=== PATIENT | female | born 1940 | race Caucasian/White ===

== ENCOUNTER → 2018-07-30 | Outpatient (CLI) | payer MEDICARE ==
[~2018-07-30] MED LIST: CIPRO500 MG PO; KEFLEX250 MG PO; MACRODANTIN100 MG PO
--- NOTE | 2018-08-02 08:26 | Diagnostic Imaging Report ---
TECHNIQUE: Magnetic resonance imaging of the right ankle and foot was performed WITHOUT injected contrast. COMPARISON: None available. HISTORY: pain, arthritis FINDINGS: LIGAMENTS: Medial Complex: Deltoid intact. Lateral Complex: Tibiofibular, talofibular, and calcaneofibular ligaments intact. TENDONS: Medial: Posterior tibial and flexor tendons intact. Lateral: Peroneal tendons intact. Anterior: Anterior tibial and extensor tendons intact. Achilles: Achilles tendon intact. BONES: Multifocal bone marrow edema throughout the foot including second metatarsal head, lateral cuneiform, cuboid, and calcaneus. No acute fracture or osteonecrosis. 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 Other: Fluid within the joints is within physiologic limits. SOFT TISSUES: Plantar fascia is unremarkable. The intermetatarsal spaces are clear. No neuroma. Plantar plates intact. IMPRESSION: Multifocal bone marrow edema throughout the foot without fracture. Favored to be due to stress response. No fracture. Signed by: Dr. Hitesh Gonzalez M.D. on 08/02/2018 8:23 AM
== END ==
LOC: MRI 15:26
PROVIDERS: ATTEND Specialist
DX: M19.071 Primary osteoarthritis, right ankle and foot (principal)

== ENCOUNTER 2021-07-19 10:57 | Outpatient (RCR) | payer MEDICARE, OTHER ==
[~2021-07-19 10:57] MED LIST changes: +ACIDOPHILUS1 EAC1 PO; +B12 ACTIVE1000 MCG PO; +COLESTIPOL HCL1 GM PO; +CRANBERRY200 MG PO; +DICYCLOMINE HCL20 MG PO; +ESTRACE42.5 GM VG; +MAGNESIUM OXID400 MG PO; +METAMUCIL FIBE3.4 GM PO; +METHENAMINE HIPP1 GM PO; +MULTI-VITAMIN1 EACH PO; +NEURONTIN300 MG PO; +OMEPRAZOLE40 MG PO; +OS-CAL 500+D T1 EACH PO; +PEPCID20 MG PO; +PROBIOTIC250 MG PO; +SLEEP AID25 M1 PO
== END 2021-07-23 ==
LOC: PT 10:57
PROVIDERS: ATTEND Specialist
DX: Z47.89 Encounter for other orthopedic aftercare (principal); S72.002D Fracture of unspecified part of neck of left femur, subsequent encounter for closed fracture with routine healing; M62.81 Muscle weakness (generalized); M25.552 Pain in left hip; M25.652 Stiffness of left hip, not elsewhere classified

== ENCOUNTER 2021-08-19 11:00 | Outpatient (RCR) | payer MEDICARE, OTHER | END 2021-08-22 | LOC: PT 11:00 | PROVIDERS: ATTEND Specialist | DX: Z47.89 Encounter for other orthopedic aftercare (principal); S72.002D Fracture of unspecified part of neck of left femur, subsequent encounter for closed fracture with routine healing; M62.81 Muscle weakness (generalized); M25.552 Pain in left hip; M25.652 Stiffness of left hip, not elsewhere classified | CPT/HCPCS: 97139 ==

== ENCOUNTER 2021-09-20 11:00 | Outpatient (RCR) | payer MEDICARE, OTHER | END 2021-09-22 | LOC: PT 11:00 | PROVIDERS: ATTEND Specialist | DX: S72.092A Other fracture of head and neck of left femur, initial encounter for closed fracture (principal) | CPT/HCPCS: 97139 ==

== ENCOUNTER 2022-07-08 10:53 | Inpatient (IN) | payer MEDICARE, OTHER ==
[~2022-07-08] VITALS: Ht 167.6 cm; Wt 70.8 kg
[2022-07-08] MEDS: MEROPENEM 1 GM in SODIUM CHLORIDE 0.9% 100 ML IV SCH ×2 (11:44→21:09)
[2022-07-08] MEDS ORDERED: ONDANSETRON HCL INJ 2MG/ML 2ML 2 MG/ML VIAL IV PRN (11:45)
[2022-07-08] MEDS: SODIUM CHLORIDE 0.9% 1000ML 1,000 ML IV SCH (11:53)
[2022-07-08 11:55] LABS: BASOPHILS % 1.4 % (0.0-1.0); EOSINOPHILS # (AUTO) 0.1 (0.0-0.4); EOSINOPHILS % 5.7 % (0.0-6.0); HEMOGLOBIN 12.7 g/dL (12.0-16.0); LYMPHOCYTES # (AUTO) 1.2 (1.0-3.2); LYMPHOCYTES % 55.2 % (18.0-39.1); MEAN CORPUSCULAR HEMOGLOBIN 30.8 pg (28-32); MEAN CORPUSCULAR HGB CONC 32.6 g/dL (31-35); MEAN CORPUSCULAR VOLUME 94.7 fL (81-99); MONOCYTES # (AUTO) 0.5 (0.2-0.8); MONOCYTES % 23.6 % (4.4-11.3); NEUTROPHILS # (AUTO) 0.3 (2.1-6.9); NEUTROPHILS % 14.1 % (38.7-80.0); PLATELET COUNT 280 x10e3/uL (140-360); RED BLOOD COUNT 4.12 x10e6/uL (3.6-5.1); RED CELL DISTRIBUTION WIDTH 13.2 % (11.7-14.4)
[2022-07-08 11:57] LABS: CLARITY,URINE CLOUDY (CLEAR); COLOR,URINE YELLOW (YELLOW); LEUKOCYTE ESTERASE ,URINE SMALL (NEGATIVE); NITRITE,URINE NEGATIVE (NEGATIVE); PROTEIN,URINE DIPSTICK 2+ (NEGATIVE)
[2022-07-08 11:58] LABS: KETONES,URINE NEGATIVE (NEGATIVE); URINE UROBILINOGEN 0.2 mg/dL (0.2 - 1)
[2022-07-08 12:09] LABS: BACTERIA,URINE MODERATE /HPF; EPITHELIAL CELLS,URINE MODERATE /LPF; RBC,URINE 0-5 /HPF (0-5)
[2022-07-08 12:10] LABS: TRIPLE PHOSPHATE CRYSTAL,UR FEW (FEW)
[2022-07-08 12:20] LABS: ALANINE AMINOTRANSFERASE 16 IU/L (0-55); ALBUMIN 3.7 g/dL (3.5-5.0); ALKALINE PHOSPHATASE 68 IU/L (40-150); ANION GAP 11.4 mmol/L (8-16); BLOOD UREA NITROGEN 14 mg/dL (7-26); BUN/CREATININE RATIO 17 (6-25); CALCIUM 9.1 mg/dL (8.4-10.2); CARBON DIOXIDE 25 mmol/L (22-29); CHLORIDE 108 mmol/L (98-107); CREATININE, SERUM 0.83 mg/dL (0.57-1.11); GLUCOSE 156 mg/dL (74-118); MAGNESIUM 1.7 MG/DL (1.3-2.1); POTASSIUM 3.4 mmol/L (3.5-5.1); SODIUM 141 mmol/L (136-145)
[2022-07-08 13:16] LABS: EOSINOPHILS % (MANUAL) 6 % (0-7); LYMPHOCYTES % (MANUAL) 59 % (19-48); MONOCYTES % (MANUAL) 21 % (3.4-9.0); NEUTROPHILS % (MANUAL) 11 % (40-74)
[2022-07-08 13:17] LABS: PLATELET ESTIMATE ADEQUATE; PLATELET MORPHOLOGY COMMENT NORMAL; RBC MORPHOLOGY COMMENT NORMAL
[2022-07-08 15:40] VITALS: BP 133/65; PULSE 66; RESP 18; TEMP 97.9; O2SAT 100
[2022-07-08] MEDS ORDERED: D-mannose PO (16:44)
[2022-07-08 17:30] VITALS: BP 133/65; PULSE 66; RESP 18; TEMP 97.9; O2SAT 100
[2022-07-08] MEDS ORDERED: IOPAMIDOL 370 MG/ML 100 ML INFUS..BTL INJ ONE (17:50)
[2022-07-08 17:51] VITALS: BP 133/65; PULSE 66; RESP 18; TEMP 97.9; O2SAT 100
[2022-07-08] MEDS ORDERED: ACETAMINOPHEN 325 MG TAB PO PRN (19:30)
[2022-07-08 20:33] VITALS: BP 139/59; PULSE 71; RESP 18; TEMP 97.1; O2SAT 98
[2022-07-08 20:51] VITALS: BP 139/59; PULSE 71; RESP 18; TEMP 97.1; O2SAT 98
[2022-07-08] MEDS: FAMOTIDINE 20 MG TAB PO SCH (21:08)
[2022-07-08] MEDS ORDERED: MELATONIN 5 MG TABLET PO PRN (22:30)
[2022-07-09] VITALS (7 sets, daily range): BP systolic 128–156; BP diastolic 59–91; PULSE 63–82; RESP 16–20; TEMP 96.2–98.2; O2SAT 95–100
[2022-07-09 04:52] LABS: BASOPHILS % 0.8 % (0.0-1.0); EOSINOPHILS # (AUTO) 0.2 (0.0-0.4); EOSINOPHILS % 6.5 % (0.0-6.0); HEMATOCRIT 32.4 % (34.2-44.1); HEMOGLOBIN 10.7 g/dL (12.0-16.0); LYMPHOCYTES # (AUTO) 1.5 (1.0-3.2); LYMPHOCYTES % 62.3 % (18.0-39.1); MEAN CORPUSCULAR HEMOGLOBIN 31.1 pg (28-32); MEAN CORPUSCULAR VOLUME 94.2 fL (81-99); MONOCYTES # (AUTO) 0.6 (0.2-0.8); MONOCYTES % 23.5 % (4.4-11.3); NEUTROPHILS # (AUTO) 0.2 (2.1-6.9); NEUTROPHILS % 6.9 % (38.7-80.0); PLATELET COUNT 216 x10e3/uL (140-360); RED BLOOD COUNT 3.44 x10e6/uL (3.6-5.1); RED CELL DISTRIBUTION WIDTH 12.9 % (11.7-14.4)
[2022-07-09 05:13] LABS: ANION GAP 11.5 mmol/L (8-16); CALCIUM 8.5 mg/dL (8.4-10.2); CREATININE, SERUM 0.71 mg/dL (0.57-1.11); POTASSIUM 3.5 mmol/L (3.5-5.1)
[2022-07-09] MEDS: SODIUM CHLORIDE 0.9% 1000ML 1,000 ML IV SCH (06:43)
[2022-07-09] MEDS: MEROPENEM 1 GM in SODIUM CHLORIDE 0.9% 100 ML IV SCH ×3 (06:43→21:16)
[2022-07-09 07:06] LABS: EOSINOPHILS % (MANUAL) 4 % (0-7); LYMPHOCYTES % (MANUAL) 57 % (19-48); MONOCYTES % (MANUAL) 23 % (3.4-9.0); NEUTROPHILS % (MANUAL) 9 % (40-74)
[2022-07-09 07:07] LABS: PLATELET ESTIMATE ADEQUATE; PLATELET MORPHOLOGY COMMENT NORMAL; RBC MORPHOLOGY COMMENT ABNORMAL
[2022-07-09] MEDS: MULTIVITAMINS/MINERALS TAB PO SCH (08:44)
[2022-07-09] MEDS: LACTOBACILLUS ACIDOPHILUS CAPSULE PO SCH (08:44)
[2022-07-09] MEDS ORDERED: ONDANSETRON HCL 4 MG ORAL DISINTEGRATING TAB PO PRN (13:30)
[2022-07-09] MEDS: FAMOTIDINE 20 MG TAB PO SCH (21:16)
[2022-07-10] VITALS (10 sets, daily range): BP systolic 133–183; BP diastolic 62–82; PULSE 62–71; RESP 17–20; TEMP 97.8–98.2; O2SAT 97–100
[2022-07-10] MEDS ORDERED: SODIUM CHLORIDE 0.9% 250ML 250 ML ONE (05:38)
[2022-07-10] MEDS ORDERED: CLONIDINE HCL 0.1 MG TAB PO PRN (06:00)
[2022-07-10] MEDS: MEROPENEM 1 GM in SODIUM CHLORIDE 0.9% 100 ML IV SCH ×4 (06:06→21:45)
[2022-07-10] MEDS: LACTOBACILLUS ACIDOPHILUS CAPSULE PO SCH (10:07)
[2022-07-10] MEDS: MULTIVITAMINS/MINERALS TAB PO SCH (10:07)
[2022-07-10] MEDS: FAMOTIDINE 20 MG TAB PO SCH (21:45)
[2022-07-11] VITALS: BP 151/55; PULSE 60; RESP 17; TEMP 97.6; O2SAT 100
[2022-07-11 04:00] VITALS: BP 169/68; PULSE 56; RESP 18; TEMP 97.8; O2SAT 100
[2022-07-11] MEDS: MEROPENEM 1 GM in SODIUM CHLORIDE 0.9% 100 ML IV SCH (05:36)
[2022-07-11 08:00] VITALS: BP 147/65; PULSE 57; RESP 18; TEMP 98; O2SAT 100
[2022-07-11 08:39] VITALS: BP 147/65; PULSE 57; RESP 18; TEMP 98; O2SAT 100
[2022-07-11] MEDS: LACTOBACILLUS ACIDOPHILUS CAPSULE PO SCH (09:24)
[2022-07-11] MEDS: MULTIVITAMINS/MINERALS TAB PO SCH (09:24)
[2022-07-11 11:53] VITALS: BP 140/65; PULSE 61; RESP 18; TEMP 98; O2SAT 98
== END 2022-07-11 12:30 | disposition home or self-care (01) | DRG 690 ==
LOC: ER 10:56 → ERHOLD 11:34 → MED/SURG3 15:40 → OBSVTOIN 07-09 08:49
PROVIDERS: ADMIT Family Medicine; ATTEND Family Medicine
PROC: 02HV33Z Insertion of Infusion Device into Superior Vena Cava, Percutaneous Approach (ICD-10-PCS; principal; 2022-07-10)
PROC: B5181ZA Fluoroscopy of Superior Vena Cava using Low Osmolar Contrast, Guidance (ICD-10-PCS; 2022-07-10)
DX: N39.0 Urinary tract infection, site not specified (principal); Z16.11 Resistance to penicillins; B96.1 Klebsiella pneumoniae [K. pneumoniae] as the cause of diseases classified elsewhere; Z87.440 Personal history of urinary (tract) infections; E78.5 Hyperlipidemia, unspecified; K21.00 Gastro-esophageal reflux disease with esophagitis, without bleeding; G47.00 Insomnia, unspecified; B96.5 Pseudomonas (aeruginosa) (mallei) (pseudomallei) as the cause of diseases classified elsewhere
CPT/HCPCS: 0223U; 36415; 36569; 71045; 74177; 80053; 81001; 83735; 85025; 87040; 87086; 87186; 99284; G0378; J2185; J7030; J7050; Q9967